=== PATIENT | male | born 1995 | race Caucasian/White ===

== ENCOUNTER 2018-04-03 11:57 | Emergency (ER) | payer MEDICAID ==
[~2018-04-03] VITALS: Ht 182.9 cm; Wt 104.8 kg
[2018-04-03] MEDS ORDERED: AMITRIPTYLINE H25 M2 PO (12:16)
[2018-04-03] MEDS ORDERED: WELLBUTRIN SR150 MG PO (12:17)
[2018-04-03] MEDS ORDERED: CLONAZEPAM 0.50.5 M1 PO (12:17)
[2018-04-03] MEDS ORDERED: DEPAKOTE ER500 MG PO (12:17)
[2018-04-03] MEDS ORDERED: DEPAKOTE 250MG250 M1 PO (12:18)
[2018-04-03] MEDS ORDERED: ZANTAC 150MG T150 MG PO (12:19)
[2018-04-03] MEDS ORDERED: SYNTHROID50 MCG PO (12:19)
[2018-04-03] MEDS ORDERED: MULTI-DAY PLUS1 EACH PO (12:19)
[2018-04-03] MEDS ORDERED: CLARITIN10 MG PO (12:19)
[2018-04-03 12:20] LABS: ABSOLUTE MONOCYTES 1.3 thou/uL (0.0-1.2); ABSOLUTE NEUTROPHILS 4.5 thou/uL (1.6-8.1); BASOPHILS 0.3 %; EOSINOPHILS 0.6 %; HEMATOCRIT 43.2 % (42.0-52.0); HEMOGLOBIN 14.4 gm/dL (14.0-18.0); LYMPHOCYTES 33.9 %; MCH 30.5 pg (26.0-34.0); MCHC 33.3 g/dL (28.0-37.0); MCV 91.6 fL (80.0-100.0); MONOCYTES 14.6 %; MPV 9.6 fl. (7.2-11.1); NUCLEATED RBCS 0 /100WBC; PLATELET COUNT* 255 thou/uL (150-400); POLYS 50.6 %; RBC 4.72 mil/uL (4.50-6.00); RDW-CV 14.6 % (10.5-14.5); WBC 8.8 thou/uL (4.0-11.0)
[2018-04-03] MEDS ORDERED: SPIRONOLACTONE25 M1 PO (12:20)
[2018-04-03] MEDS ORDERED: BENZTROPINE MES1 MG PO (12:21)
[2018-04-03] MEDS ORDERED: VITAMIN D3400 UNIT PO (12:21)
[2018-04-03 12:22] LABS: URINE BILIRUBIN NEGATIVE (Negative); URINE BLOOD NEGATIVE (Negative); URINE CLARITY CLEAR; URINE COLOR YELLOW; URINE GLUCOSE-RANDOM NEGATIVE (Negative); URINE KETONES NEGATIVE (Negative); URINE LEUKOCYTES-REFLEX NEGATIVE (Negative); URINE NITRITE-REFLEX NEGATIVE (Negative); URINE PROTEIN NEGATIVE (Negative); URINE UROBILINOGEN 0.2 E.U./dl (0.2-1.0)
[2018-04-03] MEDS ORDERED: COLACE100 MG PO (12:22)
[2018-04-03] MEDS ORDERED: LOXAPINE5 MG PO (12:23)
[2018-04-03] MEDS ORDERED: METFORMIN HCL500 MG PO (12:23)
[2018-04-03] MEDS ORDERED: RISPERDAL 1 MG T1 MG PO (12:24)
[2018-04-03] MEDS ORDERED: CHLORPROMAZINE25 M3 PO (12:24)
[2018-04-03] MEDS ORDERED: TYLENOL325 MG PO (12:25)
[2018-04-03 12:27] LABS: CALCIUM 9.3 mg/dL (8.5-10.1); POTASSIUM 4.3 mmol/L (3.5-5.1)
[2018-04-03 12:29] LABS: AMP/METHAMP Negative (Negative); BARBITURATES Negative (Negative); BENZODIAZEPINES Negative (Negative); COCAINE Negative (Negative); METHADONE Negative (Negative); OPIATES Negative (Negative); PCP Negative (Negative); THC Negative (Negative)
[2018-04-03 12:32] LABS: ALBUMIN 3.7 g/dL (3.4-5.0); TOTAL BILIRUBIN 0.3 mg/dL (<0.1-1.0); TOTAL PROTEIN 8.2 g/dL (6.4-8.2)
[2018-04-03 12:38] LABS: ACETAMINOPHEN < 2 ug/mL (10-30); ALCOHOL < 10 mg/dL (<10); SALICYLATE < 2.8 mg/dL (2.8-20.0)
[2018-04-18 04:00] VITALS: BP 150/73
== END 2018-04-05 18:22 | disposition short-term general hospital (02) ==
LOC: M.ERS 11:57
PROVIDERS: Emergency Medicine
DX: R45.851 Suicidal ideations (principal)

== ENCOUNTER 2018-04-05 19:01 | Emergency (ER) | payer MEDICAID ==
[~2018-04-05] VITALS: Ht 182.9 cm; Wt 104.8 kg
[~2018-04-05 19:01] MED LIST: AMITRIPTYLINE H25 M2 PO; BENZTROPINE MES1 MG PO; CHLORPROMAZINE25 M3 PO; CLARITIN10 MG PO; CLONAZEPAM 0.50.5 M1 PO; COLACE100 MG PO; DEPAKOTE 250MG250 M1 PO; DEPAKOTE ER500 MG PO; LOXAPINE5 MG PO; METFORMIN HCL500 MG PO; MULTI-DAY PLUS1 EACH PO; RISPERDAL 1 MG T1 MG PO; SPIRONOLACTONE25 M1 PO; SYNTHROID50 MCG PO; TYLENOL325 MG PO; VITAMIN D3400 UNIT PO; WELLBUTRIN SR150 MG PO; ZANTAC 150MG T150 MG PO
[2018-04-06 06:26] LABS: ABSOLUTE BASOPHILS 0.1 thou/uL (0.0-0.2); ABSOLUTE LYMPHOCYTES 3.3 thou/uL (0.8-5.3); ABSOLUTE MONOCYTES 1.8 thou/uL (0.0-1.2); ABSOLUTE NEUTROPHILS 7.4 thou/uL (1.6-8.1); BASOPHILS 0.5 %; EOSINOPHILS 0.2 %; HEMATOCRIT 40.7 % (42.0-52.0); HEMOGLOBIN 13.6 gm/dL (14.0-18.0); LYMPHOCYTES 26.3 %; MCH 30.8 pg (26.0-34.0); MCHC 33.4 g/dL (28.0-37.0); MCV 92.3 fL (80.0-100.0); MONOCYTES 14.6 %; MPV 9.6 fl. (7.2-11.1); NUCLEATED RBCS 0 /100WBC; PLATELET COUNT* 237 thou/uL (150-400); POLYS 58.4 %; RBC 4.41 mil/uL (4.50-6.00); RDW-CV 14.6 % (10.5-14.5); WBC 12.6 thou/uL (4.0-11.0)
[2018-04-06 06:37] LABS: CREATININE 0.9 mg/dL (0.6-1.3); POTASSIUM 4.3 mmol/L (3.5-5.1)
[2018-04-06 06:42] LABS: ALBUMIN 3.5 g/dL (3.4-5.0); TOTAL BILIRUBIN 0.2 mg/dL (<0.1-1.0); TOTAL PROTEIN 7.6 g/dL (6.4-8.2)
[2018-04-06 07:06] LABS: SALICYLATE < 2.8 mg/dL (2.8-20.0)
[2018-04-06 07:18] LABS: ACETAMINOPHEN < 2 ug/mL (10-30); ALCOHOL < 10 mg/dL (<10)
--- NOTE | 2018-04-08 14:08 | NUR ---
JL was informed this morning about [facility] not accepting pt on Sunday after all due to the facility stating that they were unsure they could meet pt needs. JL called public networking administrator/guardian Darrin Clemente who did not answer, JL left 2 messages and then left 2 messages on a back up phone number to [place]. JL called Yolis with admissions of the facilities [facility] and [facility] who was unaware that pt was not already at [facility]. Yolis then discussed situation with director plans who knew of reasoning that they felt pt was not stable enough to be out of a hospital situation after receiving [facility] report at [facility], so they are willing to reevaluate today and plan to send director apparel from [facility] to visit the pt. JL called public networking administrator's office and was able to be connected to Darrin who was also unaware that pt was not at [facility]. Darrin suggested pt might need to be evaluated for an inpt psych if [facility] is unable to accept after all. JL informed ED of updates and of pending placement either at [facility] or at an inpt psych facility depending on pt needs. ED stated pt accepted medications today and was more stable.
[2018-04-08 14:26] LABS: URINE BILIRUBIN NEGATIVE (Negative); URINE BLOOD NEGATIVE (Negative); URINE CLARITY CLEAR; URINE COLOR YELLOW; URINE GLUCOSE-RANDOM NEGATIVE (Negative); URINE KETONES NEGATIVE (Negative); URINE LEUKOCYTES-REFLEX NEGATIVE (Negative); URINE NITRITE-REFLEX NEGATIVE (Negative); URINE PROTEIN NEGATIVE (Negative); URINE SPECIFIC GRAVITY 1.025 (1.005-1.030); URINE UROBILINOGEN 0.2 E.U./dl (0.2-1.0)
[2018-04-08 14:34] LABS: AMP/METHAMP Negative (Negative); BARBITURATES Negative (Negative); BENZODIAZEPINES POSITIVE (Negative); COCAINE Negative (Negative); METHADONE Negative (Negative); OPIATES Negative (Negative); PCP Negative (Negative); THC Negative (Negative)
--- NOTE | 2018-04-10 15:57 | NUR ---
SW continuing to assist with safe placement for pt. [facility] continues to not have a bed available. [facility] officially denied that they would ever accept pt. [facility] denied pt stating they could not meet pt needs. [facility] does not have a bed available. [facility] does not have a bed available. [facility] denied do to they could not beet pt needs. [facility] does not have a bed available. [facility] reviewing and did not respond to possible placement. 8 above facilities are [facility] and the manager regional continues to deny acceptance after multiple referrals to these and any other (21 total) [facility] facilities. JL has been in contact with Public Heat Treat Inspector and Banks special education case manager and pt guardian who are apparently searching for placement for pt as well. JL sent referrals to facilities outside of [facility] at SW request to PA to broaden referral locations and as long as facility in [place], if accepting, pt would be able to transition there. JL called [facility] who reviewed referral and did not have a private room available for pt so were unable to accept. JL called and faxed referral to [place] in [place] and they did not respond, JL called to follow up again at 3 pm and their admissions had left for the day. JL contacted [facility] in [place], [place] who stated they would not be able to accept. JL called Department of Mental Health and was led to Regional office [phone] and spoke with Roxie Aleman who explained that pt could have option to return to an ISL apt with DD Services who could be mandated to provide services: [facility]. Roxie Aleman discussed with JL that the guardian is the one making the decision to not reinstate that plan but that could possibly be an option if Dept of Health and Mortgage Loan Processor was involved and ordered for this plan to take place. JL called and spoke with Maurisio Portillo and discussed above information, Beverly explained that they do not plan to pursue ISL with DD services because they have reason to believe that a Level II facility placement is the best/safest option for pt and Beverly also state that she believes that process to possibly take more time than placing pt in a LTC Level II facility. SW to continue to send referrals to facilities as needed.
--- NOTE | 2018-04-11 14:53 | NUR ---
SW continuing to follow up with placement options. [facility] unable to accept due to pt younger age. [facility] denied due to not being able to meet pt needs. [facility] reviewed and was considering however ultimately denied pt stating possibly pt behaviors not appropriate for their unit. SW sent other referrals: [facility] and all HSI facilities [facility] JL spoke again with SUSHIL Ingram and rosinautlaura Beck who said that they will continue to try to assist with placement however did not provide any other options except for SW to continue to send wherever in the [facility]. JL spoke again with Dept of and the pt CM with Regional office, Julia Gutierrez [phone] who both said that they can only pursue ISL apt with DD services if guardian agrees with that plan and the CM had left a message with PA to offer any assistance with that plan however, guardian continues to attest that best/safest plan for pt would be a Level II facility placment so Dept of is unable to assist in that process. SW to continue to follow up with possible Level II placement facility options.
--- NOTE | 2018-04-12 13:22 | NUR ---
JL called deputy/guardian for update and Mirna Beck stated that she did not have anything. JL called and followed up with pending referrals for placement: [facility] cannot accept due to pt needs and JL spoke with Kendra who assists with admissions in all HSI facilities, [facility], [facility], [place], none of the facilities will accept. [facility] denied due to they are unable to accept pts with autism. [facility] does not have any male beds. [facility] denied. [facility] not able to meet needs. JL tried to follow up with Annemarie Thibodeaux, Left a message. JL called [facility] and left a message with admissions for return call. JL spoke with Cheyenne Miller and faxed a referral for review. [facility] for [facility] and rBe's recommendation is for pt to [facility] apt with increased DD services to which [facility] would be able to fund and assist with pt needed care and services.
--- NOTE | 2018-04-15 16:30 | NUR ---
JL called and spoke with Mirna Triplett from [facility] PA office and she did not provide any leads or options for placement. JL called [facility] who denied pt stating that they would not be able to meet pt needs. JL called [facility] in [place], [place] and they said that they do not accept Medicaid. SW called [facility] who said that the pts there are appointed there by a magisterial district judge or are only there for an evaluation. SW tried [facility] facilities again, [facility] still does not have a bed available according to [facility]'s DON. JL called Hotline [phone] and reported pt situation. JL received call from Julia Gutierrez, pt CM through [facility] and Julia plans to visit with pt and stated that [facility] has offered to be of support but have not heard back from PA office. JL received call from Mirna Triplett at PA office asking for copies of the psych evaluations. JL to send to fax # [phone].
--- NOTE | 2018-04-16 14:28 | NUR ---
JL met briefly with Oumou Bro) [facility] CM who visited to say hello to pt. Oumou did not express any other insight or options at this time but that [facility] would continue to provide support for pt at [place]. JL called guardian to follow up on SW faxing requested psychological evaluation and left a message requesting a return call to also follow up on any leads for placement as well as if since pt is medically and psychologically cleared/stable, pt could return to [facility] with DD services. JL received follow up call from [facility] regarding hotline and JL faxed requested information to assist with the hotline case. JL called 3 hours later and asked about status of decision and report; case still under review with no resolution at this time; reviewer to contact JL today by 4:30 pm and if not, in the morning. There continues to be no Level II LTC facilities willing or able to accept pt referral. [facility] circuit design engineer and left a message requesting a follow up return call. JL spoke with Ligia in the [facility] court services and she said that she will follow up with the administrators to make sure that they received JL email and see if there is anything they would be able to do to assist with calling into question the PA and guardian's decision to continue to leave pt in the ED while they are searching for a LTC facility that could take an indefinite number of days. JL to continue to follow up with any referrals, the PA and guardian, [facility], and [facility] court system to assist with care plan and transition for pt.
--- NOTE | 2018-04-19 17:08 | NUR ---
JL followed up with Oumou Gutierrez (pt DM CM) who continues to attest that pt would be able to have care services in the home at pt ISL apt but Oumou did not have any other updates or any contact from the PA or guardian regarding pt case. JL left a message for Marianna, the DHSS worker, to discuss status of the hotline and any updates. JL called James Emery at [facility] PA office and left a message about pending placement options denying: [facility] denied and [facility] did not respond to the referral. JL spoke with Probate Court who have the case under review and the Carbon Grinder and PA plan to have a meeting and may have an update by Sunday. JL will continue to assist with finding safe placement/sending referrals and will continue to follow up with [facility], [facility], the [facility] PA and guardian and the [facility] court system as needed.
[2018-04-19 18:58] VITALS: BP 143/90
== END 2018-04-19 18:59 | disposition still patient (30) ==
LOC: M.ERS 19:01
PROVIDERS: Emergency Medicine; Emergency Medicine Emergency Medical Services
DX: R45.851 Suicidal ideations (principal); F31.9 Bipolar disorder, unspecified; F84.0 Autistic disorder

== ENCOUNTER 2018-04-19 18:48 | Inpatient (IN) | payer MEDICAID ==
[~2018-04-19] VITALS: Ht 190.5 cm; Wt 106.6 kg
[2018-04-19 20:37] VITALS: BP 123/80
--- NOTE | 2018-04-19 21:14 | NUR ---
PATIENT ARRIVED TO ROOM ALERT AND ORIENTED X4. CALM AND COOPERATIVE AT THIS TIME. SITTER AT BEDSIDE. NO C/O PAIN. ASSESSMENT CHARTED. RESTING QUIETLY IN BED AT THIS TIME.
--- NOTE | 2018-04-20 06:19 | NUR ---
PATIENT PLEASANT AND COOPERATIVE THIS SHIFT. AWAKE ALL NIGHT,PLAYING FERNANDO AND COLORING WITH SITTER. DENIES PAIN OR NAUSEA. UP AMBULATING IN ROOM AND SHORT DISTANCE IN HALLWAY WITH SITER.
--- NOTE | 2018-04-20 18:30 | NUR ---
ALERT AND ORIENTED X4. UP AD DEONTE IN ROOM. SITTER AT BEDSIDE. DENIES PAIN AND NAUSEA. TAKING MEDICATIONS PRESCRIBED. HAS BEEN VERY DROWZY AND SLEEPING MOST OF SHIFT. TOLERATING DIET. VSS ON ROOM AIR. HOURLY ROUNDS HAVE BEEN MAINTAINED THROUGHOUT SHIFT. CALL LIGHT IS WITHIN REACH. NURSING WILL CONTINUE TO MONITOR.
[2018-04-20 22:00] VITALS: BP 125/77
--- NOTE | 2018-04-21 05:09 | NUR ---
ALERT AND ORIENTED X4. UP AD DEONTE IN ROOM. SITTER IN ROOM WITH PATIENT. PATIENT PLEASANT AND COOPERATIVE WITH STAFF. NO C/O PAIN OR NAUSEA. PATIENT SLEEPING QUIETLY MOST OF NIGHT.
[2018-04-21 08:30] VITALS: BP 132/84
--- NOTE | 2018-04-21 20:05 | NUR ---
PATIENT REMAINED ALERT AND ORIENTED X'S 4. VITAL SIGNS AND SPO2 STABLE. PATIENT'S MOODS WENT FROM GOOD TO UPSET OVER THINGS LIKE NOT HAVING PEPSI TO DRINK. PATIENT REFUSED TO TAKE HIS AFTERNOON MEDS DUE TO HAVING ONLY WATER TO TAKE THEM WITH. HE WAS OFFENDED NURSE EVEN TRIED TO OFFER WATER. HE ONLY DRINKS PEPSI. WENT FOR WALKS WITH SECURITY MULTIPLE TIMES TODAY. VOIDED AND PASSED BM WITHOUT ISSUE. TOLERATED DIET, NO NAUSEA AND VOMTING. COMPLETED HOURLY ROUNDING. CALL LIGHT WITHIN REACH. WILL CONTINUE TO MONITOR.
[2018-04-21 21:45] VITALS: BP 127/81
--- NOTE | 2018-04-22 02:40 | NUR ---
ALERT AND ORIENTED. UP AD DEONTE IN ROOM. SITTER IN ROOM WITH PATIENT. PATIENT REFUSED TO GIVE SITTER'S PHONE BACK TO HIM. 2111 SECURITY WAS CALLED AND CAME ASSIST WITH GETTNG PHONE BACK TO SITTER. PATIENT MAD AND CUSSING AT EVERYONE. SECURITY ABLE TO GET PHONE BACK. PATIENT REFUSING MEDICATIONS. 2131 PATIENT STILL UPSET AND LOCKED SELF IN BATHROOM. SECURITY CALLED AGAIN AND GOT BATHROOM DOOR UNLOCKED. 2199 PATIENT CALMER AND TOOK MEDICATIONS. 199 PATIENT PLAYING FERNANDO WITH SITTER.
--- NOTE | 2018-04-22 05:55 | NUR ---
PATIENT AGGITATED AT BEGINING OF SHIFT. HAS BEEN CALM AND COOPERATIVE REST OF SHIFT. UP AD DEONTE IN ROOM WITH SITTER. NO C/O PAIN OR NAUSEA. ALERT AND ORIENTED X4. UP MOST OF NIGHT PLAYING GAMES, WATCHING TV AND DRAWING.
[2018-04-22 11:17] VITALS: BP 124/78
--- NOTE | 2018-04-22 16:01 | NUR ---
JL received fax from SUSHIL Ingram providing other possible Nursing Facilities for Mental Health for placement for pt. JL called [facility] who denied as pt has to have [place] Medicaid or [place] pending already to be considered. JL called and faxed to [facility] who has no beds available at this time. SW called and faxed [facility] and they are reviewing the referral. SW called and left another message with [facility] as they have not responded to a referral that was already sent. JL spoke with cassie/KATHARINA Arias at [facility] and faxed referral, they are considering but they are not a locked unit and so [place] thought they might not be able to accept. [facility] and they do not have any [facility] beds available. JL called Marianna with [facility] to follow up on the hotline and they mentioned that they are aware that PA is assisting in trying to find placement to which SW agreed that they are providing more options for SW to send referrals. JL asked about time frame being a possible issue for pt quality of life and Marianna agreed and said she would present to her supervisor pumping station again and follow up to determine if they would be able to assist with more timely dc plan. JL spoke with tele psychiatrist who provided progress note stating pt would be stable to return to [facility] with DD services. JL faxed both the progress note and the original psych consult to Beverly Ingram. JL called Beverly Ingram and left a message updating on how SW had faxed more referrals and the status of the referrals. SW to continue to follow to assist with safe dc planning. SW to contact the court system tomorrow as well to follow up with the night time nanny who was reviewing the case.
--- NOTE | 2018-04-22 18:39 | NUR ---
ASSUMED PT CARE AT 0730, FULL ASSESMENT DONE CHARTED. PT WOULD NOT TALK TO THIS RN THIS AM, REFUSED AM MEDS UNTIL LUNCH TIME. RELUCTANT TO WAKE UP FOR MEDS/ASSESMENTS. HAS SITTER 1:1, GOING ON WALKS WITH STAFF. ACTING APPROPRIATE. MORE ALERT THIS EVEINING. WILL CONTINUE TO MONITOR.
[2018-04-22 20:45] VITALS: BP 133/70
--- NOTE | 2018-04-23 06:00 | NUR ---
PATIENT IS ALERT AND ORIENTED AND IS UP AD-DEONTE IN ROOM. SITTER IN ROOM WITH PATIENT. PATIENT HAS BEEN COOPERATIVE DURING THE SHIFT BUT RESTLESS. MEDICATIONS GIVEN ORDERED AND CHARTED. HOURLY ROUNDS MADE. WILL CONTINUE WITH PLAN OF CARE AND NURSING TO MONITOR.
[2018-04-23 08:30] VITALS: BP 120/77
[2018-04-23 16:20] VITALS: BP 112/62
--- NOTE | 2018-04-23 16:29 | NUR ---
JL followed up with referrals for possible placement: [facility] did not answer, SW left a message to request call back to discuss referral status. [facility] did not answer, SW left another voicemail requesting return call. [facility] denied stating they would be unable to meet pt needs. SW discussed pt situation and dc planning with PA office, Beverly Ingram and another [facility] [employer] representative discussed continuing efforts to find placement. [facility] CM called JL and discussed other possible crisis intervention and programs that would be available to pt if pt able to return home to an ISL with extra DD services. JL spoke briefly with Probate Ct Upkeep Worker in the morning who confirmed that PA and justice court judge met and there was a resolution and she planned to check on the outcome and contact SW with any updates. SW to continue to follow to assist with safe dc planning.
--- NOTE | 2018-04-23 18:41 | NUR ---
PATIENT REMAINED ALERT AND ORIENTED X'S 4. VITAL SIGNS AND SPO2 STABLE. TOLERATED DIET, NO NAUSEA AND VOMITING. PATIENT NEEDED SOME CONVINCING TO TAKE PILLS BUT NURSE WAS ABLE TO TALK PATIENT INTO TAKING THEM. VOIDED WITHOUT ISSUE. AFFECT WAS GOOD THROUGHOUT SHIFT. COMPLETED HOURLY ROUNDING. CALL LIGHT WITHIN REACH. WILL CONTINUE TO MONITOR.
[2018-04-23 20:20] VITALS: BP 108/70
[2018-04-23 22:35] VITALS: BP 128/35
--- NOTE | 2018-04-24 07:52 | NUR ---
PATIENT HAD NO BEHAVIORAL ISSUES DURING SHIFT. PATIENT WAS PLEASANT AND FOLLOWED INSTRUCTIONS. VSS ON RA. MEDICATIONS GIVEN ORDERED AND CHARTED. PATIENT SLEEPING AT THIS TIME. HOURLY ROUNDS MADE. NURSING TO CONTINUE MONITORING.
[2018-04-24 08:00] VITALS: BP 156/97
--- NOTE | 2018-04-24 09:52 | NUR ---
SW called guardian who did not answer so SW left a detailed message regarding facilities presented to send referrals have denied or not responded and SW requested another list of options to fax referrals to continue to search for placement. SW called [facility] and left another message to try to follow up on referral status. SW called [facility] and left the third message to follow up on referral status. SW to continue to follow to assist with safe dc planning.
--- NOTE | 2018-04-24 14:12 | NUR ---
PT CALM AND COOPERATIVE WITH STAFF. PT AMBULATING IN HALLS AND OUTSIDE ACCOMPANIED BY STAFF.
--- NOTE | 2018-04-24 17:41 | NUR ---
PT REMAINS CALM AND COOPERATIVE THROUGHOUT SHIFT. PT INTERACTS APPROPRIATELY WITH STAFF. PT RESPONDS WELL TO GENTLE LIMIT SETTING. PT TOLERATING PO WELL. NO IMPULSIVE BEHAVIORS NOTED
[2018-04-24 21:50] VITALS: BP 117/60
--- NOTE | 2018-04-25 06:24 | NUR ---
Oriented x 3 but drowsy at start of shift. He did cooperate with getting his vitals being done. After that he covered up and din't want to take his meds. We discussed it further and he agreed to take the smaller pills,then we worked our way up to the larger pills and then he had 4 depakote 500 mg pills left, he did agree to take 2 of them. He did hug me afterwards. He has been cooperative all of this shift. He came to the desk and laughed and joked with us. He has slept well.
[2018-04-25 08:26] VITALS: BP 124/64
--- NOTE | 2018-04-25 08:54 | NUR ---
PATIENT REFUSING MEDS THIS AM, AND REFUSING TO SPEAK. LEFT THE UNIT UNATTENDED. SECURITY PAGED. PATIENT OUTSIDE OF MAN ENTRANCE OF HOSPITAL. PATIENT CURRENTLY WALKING WITH SECURITY AT THIS TIME.
--- NOTE | 2018-04-25 09:19 | NUR ---
SECURITY BROUGHT PATIENT BACK TO UNIT AND HE WAS AGREEABLE TO TAKE HIS MORNING MEDICATION.
--- NOTE | 2018-04-25 16:21 | NUR ---
PATIENT HAS BEEN SLEEPING SINCE LUNCH TIME. REFUSES TO WAKE FOR MEDS. CALL LIGHT WITHIN REACH. WILL CONTINUE TO MONITOR.
--- NOTE | 2018-04-25 16:36 | NUR ---
[facility] JL called and faxed referral to [facility] for their specialty unit and although no male beds available at this time, Estella said she would consider referral and contact SW if any beds become available and if they would be able to accept pt. JL called [facility] and the number was not working; JL sent a contact us form through their website. JL received call from [facility] in [place], [place] and they felt that they did not have a compatible roommate for pt at this time but encouraged to check back weekly to see if they would be able to accept pt. SW to continue to follow to assist with safe dc planning and placement.
--- NOTE | 2018-04-25 17:25 | NUR ---
PATIENT WOKE UP. TOOK EVENING MEDS.
[2018-04-25 20:00] VITALS: BP 108/57
--- NOTE | 2018-04-26 07:56 | NUR ---
Oriented x 3 but drowsy at start of shift. He agreed to take his meds because i said I would bring in a [employer] bar which I did but it still took some convincing to take his meds. He slept for awhile but he woke up and sat down in a chair on the other side of the nurse desk. He sat there for abour 2 hours. He also he left the unit after I told him he shouldn't,security did catch up to him. He returned with a soda he got from someone in ED. I explained to him he should go to bed because I had to chart and couldn't talk which he said no. But he did finally go to bed. He just trys to push the limit. Security was asking if he had a sitter etc
[2018-04-26 08:00] VITALS: BP 136/77
--- NOTE | 2018-04-26 15:33 | NUR ---
Nutrition: Pt admitted for SI. H/o autism, bipolar disorder, SI. Regular diet. Wt 235#. Assessed for LOS. No labs recorded in [employer]. Pt appears nutritionally table at this time. Low risk.
[2018-04-26 15:47] VITALS: BP 139/74
--- NOTE | 2018-04-26 16:39 | NUR ---
JL received call from [facility] who denied due to pt age; they only accept pts 55 and older. JL received call from Carolynn in admissions at [facility] who said that they would be able to accept pt today. JL called and left message for pt guardian, James Emery, about the details of the acceptance and then James called back and JL was unable to answer so James left a message stating that they are in agreement with pt to dc to [facility] today and to inform pt that they will be in contact with pt to follow up on pt senior care care plan. Pt nurse discussed with pt and pt said he was fine with the transition to facility/[facility]. JL spoke with admissions at [facility] again and arranged transportation for between 6:00 pm and 6:30 pm. JL faxed final orders and med list to [facility]. No other dc needs expressed.
--- NOTE | 2018-04-26 16:56 | NUR ---
PT UP IN ROOM AND HALLS WITH STEADY GAIT. PT UPSET THIS AM AND BELIGERENT BUT NOT AGGRESSIVE AND EASILY REDIRECTED. PT TOLERATING PO WELL. PLANS TO GO TO [facility] THIS PM. PT AWARE
[2018-04-26 17:25] VITALS: BP 139/74
--- NOTE | 2018-04-26 17:42 | NUR ---
PT LEFT UNIT WITH ALL BELONGINGS. PT CALM AND COOPERATIVE. ATTEMPT TO CALL REPORT AT . NO ANSWER. WILL ATTEMPT TO CALL AGAIN
== END 2018-04-26 17:42 | DRG 885 ==
LOC: M.TBA 18:48 → M.ORTHSURG 19:02
PROVIDERS: ADMIT Internal Medicine
DX: F31.9 Bipolar disorder, unspecified (principal); R45.851 Suicidal ideations; R62.50 Unspecified lack of expected normal physiological development in childhood; F84.0 Autistic disorder; Z79.899 Other long term (current) drug therapy